=== PATIENT | male | born 1980 ===

== ENCOUNTER → 2016-05-20 | Outpatient (CLI) | payer OTHER | END | disposition home or self-care (01) | LOC: C.LABSPEC 10:35 | DX: R04.2 Hemoptysis (principal) ==

== ENCOUNTER → 2016-05-21 | Outpatient (CLI) | payer OTHER | LOC: C.LABSPEC 10:41 | DX: R04.2 Hemoptysis (principal) ==

== ENCOUNTER → 2016-05-24 | Outpatient (CLI) | payer OTHER | LOC: C.LABSPEC 10:00 | PROVIDERS: ATTEND Nurse Practitioner Adult Health | DX: A15.9 Respiratory tuberculosis unspecified (principal) ==